=== PATIENT | female | born 1965 | race Caucasian/White ===

== ENCOUNTER 2017-06-11 07:18 | Emergency (ER) | payer SELFPAY ==
[2017-06-11 07:24] VITALS: TEMP 98.6; BMI 293.6
--- NOTE | 2017-06-11 07:47 | PDOC ---
Attending Attestation - Resident Resident Name: Laura Martinez - ED Attending Attestation I have performed the following: I have examined & evaluated the patient, The case was reviewed & discussed with the resident, I agree w/resident's findings & plan, Exceptions are as noted - HPI HPI: 51 yo F no significant past medical history presents with vaginal bleeding for the past 2 days. She states she has been using super strength tampons, changing them every hour. she was seen by her printing sign machine operator approximately 1.5 years ago for similar symptoms, states that she was told everything was normal, reassured. She states she has not had an ultrasound recently. Denies lightheadedness, weakness. No abdominal pain, N/V/D, f/c. No discharge. - Physicial Exam PE: GENERAL: Awake, alert, and fully oriented, in no acute distress HEAD: No signs of trauma EYES: PERRLA, EOMI, sclera anicteric, conjunctiva clear ENT: Auricles normal inspection, hearing grossly normal, nares patent, oropharynx clear without exudates. Moist mucosa NECK: Normal ROM, supple, no lymphadenopathy, JVD, or masses LUNGS: Breath sounds equal, clear to auscultation bilaterally. No wheezes, and no crackles HEART: Regular rate and rhythm, normal S1 and S2, no murmurs, rubs or gallops ABDOMEN: Soft, nontender, normoactive bowel sounds. No guarding, no rebound. No masses EXTREMITIES: Normal range of motion, no edema. No clubbing or cyanosis. No cords, erythema, or tenderness NEUROLOGICAL: Cranial nerves II through XII grossly intact. Normal speech, normal gait SKIN: Warm, Dry, normal turgor, no rashes or lesions noted. : No external lesions. +Mod blood in the vault. Os closed. Adnexae nontender. - Medical Decision Making Patient with recent intermittent heavy vaginal bleeding. DDx includes DUB, adenomyosis, fibroids. Will obtain labwork and sono. Likely DC home.
--- NOTE | 2017-06-11 07:55 | PDOC ---
History of Present Illness - General Chief Complaint: Vaginal Bleeding Stated Complaint: BLEEDING Time Seen by Provider: 06/11/17 07:43 History Source: Patient Exam Limitations: No Limitations - History of Present Illness Initial Comments: 06/11/17 07:54 CC: 2 day h/o vaginal bleed Patient is a 51 y.o. female with no significant PMH who presents with a 2 day h/ o heavy vaginal bleed for which she is using 1 super tampon hourly. Patient denies any associated abdominal pain, lightheadedness or shortness of breath. Patient notes that the first day of her LMP was in early April and at that time she continuously bled for 6 weeks. Patient notes she has been having regular menstrual periods for the last year that last 5 days excepting her most recent menstrual period. Patient states she was evaluated for this complaint in July 2015 and was told everything was "normal" and perhaps her symptoms were alma-menopausal. Patient denies having an ultrasound at that time. Patient denies any fever, chills or chest pain. Past History - Past Medical History Allergies/Adverse Reactions: Allergies Allergy/AdvReac Type Severity Reaction Status Date / Time No Known Allergies Allergy Verified 06/11/17 07:24 Home Medications: Ambulatory Orders No Home Medications 0 dose .ROUTE UTDICT 11/21/12 Other medical history: denies - Psycho/Social/Smoking Cessation Hx Suicidal Ideation: No Smoking Status: No Smoking History: Never smoked Number of Cigarettes Smoked Daily: 0 Information on smoking cessation initiated: No Hx Alcohol Use: No Drug/Substance Use Hx: No Substance Use Type: None Review of Systems - Review of Systems Constitutional: No: Chills, Diaphoresis, Fever, Night Sweats HEENTM: No: Blurred Vision, Hearing Loss, Throat Pain Respiratory: No: Cough, Orthopnea, Shortness of Breath, Stridor, Wheezing Cardiac (ROS): No: Chest Pain, Edema, Irregular Heart Rate, Lightheadedness, Palpitations ABD/GI: No: Constipated, Diarrhea, Nausea, Abdominal cramping : Yes: Other (vaginal bleed). No: Burning Integumentary: No: Bruising, Change in Color, Erythema, Sweating Neurological: No: Headache, Numbness Psychiatric: No: Anxiety, Depression Hematologic/Lymphatic: Yes: Anemia, Blood Clots All Other Systems: Reviewed and Negative *Physical Exam - Vital Signs Last Vital Signs Temp Pulse Resp BP Pulse Ox 98.6 F 75 18 129/88 100 06/11/17 07:22 06/11/17 07:22 06/11/17 07:22 06/11/17 07:22 06/11/17 07:22 - Physical Exam General Appearance: Yes: Nourished, Appropriately Dressed Neck: positive: Trachea midline, Supple Respiratory/Chest: positive: Lungs Clear, Normal Breath Sounds Cardiovascular: positive: Regular Rhythm, Regular Rate, S1, S2 Female Pelvic Exam: positive: normal external exam, cervical os closed, normal adnexa, vaginal bleeding, other (Dark red blood in vaginal vault; cervical OS is closed; normal bimanual exam) Gastrointestinal/Abdominal: positive: Normal Bowel Sounds, Soft Extremity: positive: Normal Capillary Refill Integumentary: positive: Normal Color, Dry, Warm Neurologic: positive: Fully Oriented, Alert ED Treatment Course - LABORATORY CBC & Chemistry Diagram: 06/11/17 08:40 06/11/17 08:40 Medical Decision Making - Medical Decision Making 06/11/17 08:12 Initial differential diagnosis include fibroids vs. ovarian malignancy vs. spontaneous PLAN: 1. CBC, BMP 2. Urine 3. Transvaginal U/S 06/11/17 11:49 Transvaginal U/S shows fibroid uterus. Patient discharged with referral to OB- House Painting Instructor. At the time of discharge patient was ambulatory, alert and understood her diagnosis and follow up treatment instructions. *DC/Admit/Observation/Transfer Diagnosis at time of Disposition: Fibroid uterus - Discharge Dispostion Disposition: HOME Admit: No - Referrals Referrals: Luz Hartley MD [Staff Physician] - - Patient Instructions Printed Discharge Instructions: Uterine Fibroids, Facts About Fibroids, DI for Uterine Fibroids Additional Instructions: You have been diagnosed with a fibroid uterus which is likely the source of your bleeding. Please follow up with an skid machine operator, Dr. Reid, in the next 2-3 days for further evaluation. Please return to the ED should you become short of breath, lightheaded, faint or have severe chest pain.
[2017-06-11 08:48] LABS: URINE APPEARANCE CLOUDY; URINE BILIRUBIN NEGATIVE (NEGATIVE); URINE BLOOD 3+ (NEGATIVE); URINE COLOR RED; URINE GLUCOSE (UA) 1+ (NEGATIVE); URINE KETONE NEGATIVE (NEGATIVE); URINE LEUK ESTERASE NEGATIVE (NEGATIVE); URINE NITRITE NEGATIVE (NEGATIVE); URINE UROBILINOGEN NEGATIVE mg/dL (0.2-1.0)
[2017-06-11 08:49] LABS: EOSINOPHIL 2.6 % (0-4.5); MCHC 33.2 g/dl (32.0-36.0); MEAN CELL VOLUME 78.4 fl (80-96); MEAN PLT VOLUME 7.3 fl (7.5-11.1); PLATELET COUNT 327 K/MM3 (134-434); RDW 15.3 % (11.6-15.6); WHITE BLOOD COUNT 7.3 K/mm3 (4.0-10.0)
[2017-06-11 09:13] LABS: ANION GAP 6 (8-16); CALCIUM 8.5 mg/dL (8.5-10.1); CO2 28 mmol/L (21-32); CREATININE 0.9 mg/dL (0.55-1.02); GLUCOSE,RANDOM 129 mg/dL (74-106)
[2017-06-11 09:15] LABS: URINE PROTEIN 2+ (NEGATIVE)
[2017-06-11 09:18] LABS: URINE RBC 6819 /hpf (0-3)
[2017-06-11 12:06] VITALS: BP 122/85; PULSE 72
== END 2017-06-11 12:10 | disposition home or self-care (01) ==
LOC: JER 07:18
DX: D25.9 Leiomyoma of uterus, unspecified (principal)
CPT/HCPCS: 36415; 76830-TC; 76856-TC; 80048; 81003; 81015; 84703; 85025; 99284-25